=== PATIENT | male | born 1970 | race African-American/Black ===

== ENCOUNTER 2016-05-01 16:34 | Emergency (ER) | payer SELFPAY ==
[2016-05-01 17:20] VITALS: PULSE 67; TEMP 98; BMI 22.8
[2016-05-01 17:40] LABS: AUTOMATED BASOPHIL 0.9 % (0-2); AUTOMATED EOSINOPHIL 2.8 % (0-5); AUTOMATED LYMPH 23.8 % (17-44); AUTOMATED MONOCYTE 8.8 % (3-10); AUTOMATED NEUTROPHIL 63.7 % (45-76); MPV 9.7 fL (7.4-10.4)
[2016-05-01 17:53] LABS: PARTIAL THROMB. TIME 23.8 SEC (22-35)
[2016-05-01 17:56] LABS: BLOOD UREA NITROGEN 14 MG/DL (9-20); CALCIUM 9.4 MG/DL (8.4-10.2); CALCULATED OSMOLALITY 269 MOs/Kg (270-290); CHLORIDE 105 mEq/L (98-107); GLUCOSE 93 MG/DL (70-99); SODIUM LEVEL 139 mEq/L (137-146); TOTAL PROTEIN 7.5 G/DL (6.3-8.2)
--- NOTE | 2016-05-01 20:31 | EDPRACDOC ---
- General Information Chief Complaint: Neuro Symptoms/Deficits Stated Complaint: WEAKNESS AND SYNCOPE Mode Of Arrival: Car Home Medications: Home Medications Lisinopril 10 mg PO DAILY #60 tablet 05/01/16 Allergies/Adverse Reactions: Allergies Allergy/AdvReac Type Severity Reaction Status Date / Time No Known Allergies Allergy Verified 05/01/16 17:21 - History of Present Illness Onset: 1500 HPI: C/o episodes of lightheadedness past few days, and today passed out once. denies cp, sob, fever, N/V/D, cough, sore throat, change in urine or BM. Med hx = HTN, and has not been taking BP meds x 4 months. Hx of seizures with last seizure 25 yrs ago. Symptoms Started: Reports: Suddenly, At Rest Symptoms Description: Improved Symptoms: Reports: Faintness, Syncope Symptom Severity: Reports: Does not affect activitiy Associated signs and symptoms:: Reports: None ED Past Medical History - History Reviewed Yes Nurses notes reviewed and agree except as marked - Patient Medical History Neurological History: Reports: Seizures (12 years ago) Cardiac History: Reports: Hypertension GI/ History: Reports: Kidney Stones Surgical History: Reports: Other (KNEE) - Family Medical History Reports: Hypertension (PARENTS), Diabetes (PARENTS), Cardiac Disorders (FATHER) EDM Review of Systems - Review of Systems ROS Negative Except as Marked: Yes All systems reviewed and were negative except as marked Neurological: Other (lightneadedness) - Physical Exam Constitutional: No apparent distress, Alert Oriented to: Time, Person, Place Last recorded Vital Signs: Last Vital Signs Temp 98 F 05/01/16 17:11 Pulse 67 05/01/16 20:16 Resp 18 05/01/16 20:16 BP 169/100 05/01/16 20:16 Pulse Ox 97 05/01/16 20:16 Oxygen Pulse Oxygen Saturation 97 O2 Device Room Air Oxygen Flow Rate Fraction of Inspired Oxygen ( FIO2) - HEENT Head: Normal Eye Exam: negative: Conjunctival Injection, Scleral Icterus Oropharynx: negative: Drooling TMJ: Normal Nose: No Symptoms Reported Neck: Normal - Respiratory/Cardiovascular Respiratory: Normal - CTA Cardiovascular: Bradycardia - GI Tenderness: Non tender - Musculoskeletal Back: Normal Extremities: Normal - Neurologic Memory Impaired: Normal Motor Function: Normal Cranial Nerve: Normal Cerebellar: Normal Mood Description: Normal Thought: Coherent Perception: Normal - Neurologic Orientation: Time, Person, Place Speech: Fluent Affect: Normal Thought: Coherent Perception: Normal - Coordination Finger to Nose Test: Normal Performance Alternate Nose to Finger Test: Normal Performance Heel on [place] Test: Normal Performance - Gait Standing Equilibrium Reactions: Within Normal Limits Left, Within Normal Limit Right Unsupported Stance Ability ([place] Balance): Safely- 2 minutes Unsupported Stance- Eyes Closed ([place] Balance): Safely, 10 seconds Unsupported Stance- Feet Together: Independent, 1 minute - Results 05/01/16 17:25 05/01/16: WBC 9.0 xk/uL (3.8-10.8) 05/01/16: RBC 4.30 xM/uL (4.70-6.10) L 05/01/16: Hgb 12.8 g/dL (14.0-18.0) L 05/01/16: Hct 38.0 % (42-52) L 05/01/16: MCV 89 fL (80-94) 05/01/16: MCH 29.7 pg (27-32) 05/01/16: MCHC 33.5 g/dl (33-36) 05/01/16: RDW 13.9 % (11.5-14.5) 05/01/16: Plt Count 237 xk/uL (130-400) 05/01/16: MPV 9.7 fL (7.4-10.4) 05/01/16: Neut % (Auto) 63.7 % (45-76) 05/01/16: Lymph % (Auto) 23.8 % (17-44) 05/01/16: [place] % (Auto) 8.8 % (3-10) 05/01/16: Eos % (Auto) 2.8 % (0-5) 05/01/16: Baso % (Auto) 0.9 % (0-2) 05/01/16: Absolute Neuts (auto) 5.67 xk/uL (1.7-8.2) 05/01/16: Absolute Lymphs (auto) 2.07 xk/uL (0.65-4.75) 01/13/17 17:25 PT 10.3 SEC (9.2-11.2) 05/01/16 17:25 INR 1.0 05/01/16 17:25 APTT 23.8 SEC (22-35) 05/01/16 17:25 Sodium 139 mEq/L (137-146) 05/01/16 17:25 Potassium 3.9 mEq/L (3.5-5.1) 05/01/16 17:25 Chloride 105 mEq/L (98-107) 05/01/16 17:25 Carbon Dioxide 25 mMOL/L (22-33) 05/01/16 17:25 Anion Gap 13 mEq/L (8-16) 05/01/16 17:25 BUN 14 MG/DL (9-20) 05/01/16 17:25 Creatinine 1.20 MG/DL (0.66-1.25) 05/01/16 17:25 Estimated GFR (MDRD) > 60 mL/min (>=60) 05/01/16 17:25 Glucose 93 MG/DL (70-99) 05/01/16 17:25 Calculated Osmolality 269 MOs/Kg (270-290) L 05/01/16 17:25 Calcium 9.4 MG/DL (8.4-10.2) 05/01/16 17:25 Total Bilirubin 0.4 MG/DL (0.2-1.3) 05/01/16 17:25 AST 28 IU/L (17-59) 05/01/16 17:25 ALT 33 IU/L (21-72) 05/01/16 17:25 Alkaline Phosphatase 112 IU/L (38-126) 05/01/16 17:25 Troponin I < 0.01 ng/mL (<.04) 05/01/16 17:25 Oos-R-Hpbwrjqgacd Pept 42 pg/mL (0-450) 05/01/16 17:25 Total Protein 7.5 G/DL (6.3-8.2) 05/01/16 17:25 Albumin 4.1 G/DL (3.5-5.0) 05/01/16 17:25 Lab Results 05/01/16 05/01/16 05/01/16 17:25 17:25 17:25 WBC 9.0 RBC 4.30 L Hgb 12.8 L Hct 38.0 L MCV 89 MCH 29.7 MCHC 33.5 RDW 13.9 Plt Count 237 MPV 9.7 Neut % (Auto) 63.7 Lymph % (Auto) 23.8 [place] % (Auto) 8.8 Eos % (Auto) 2.8 Baso % (Auto) 0.9 Absolute Neuts (auto) 5.67 Absolute Lymphs (auto) 2.07 PT 10.3 INR 1.0 APTT 23.8 Sodium 139 Potassium 3.9 Chloride 105 Carbon Dioxide 25 Anion Gap 13 BUN 14 Creatinine 1.20 Estimated GFR (MDRD) > 60 Glucose 93 Calculated Osmolality 269 L Calcium 9.4 Total Bilirubin 0.4 AST 28 ALT 33 Alkaline Phosphatase 112 Troponin I < 0.01 Spe-D-Zveswlcjuck Pept 42 Total Protein 7.5 Albumin 4.1 - EKG EKG #1 EKG Time: 17:29 -: Yes EKG interpreted by me Rate: bpm: 57 Rhythm: SB ST: Normal - Diagnostic Imaging Chest Image interpreted by: Radiologist EXAM: PORTABLE CHEST 1 VIEW COMPARISON: None. FINDINGS: Normal mediastinum and cardiac silhouette. Normal pulmonary vasculature. No evidence of effusion, infiltrate, or pneumothorax. No acute bony abnormality. IMPRESSION: Normal chest radiograph Electronically Signed By: Jaquan Cantu M.D. On: 05/01/2016 20:44 Decision Time to Discharge: 21:02 - Departure Disposition: Home Condition: Stable Final Diagnosis: Light-headedness Hypertension Qualifiers: Hypertension type: essential hypertension Qualified Code(s): I10 - Essential ( primary) hypertension Syncope Qualifiers: Syncope type: unspecified Qualified Code(s): R55 - Syncope and collapse Instructions: Chronic Hypertension (ED), Lightheadedness (ED), Syncope (ED) Education/Counseling Given To: Patient Education/Counseling Given Regarding: Diagnosis, Treatment, Prognosis, Follow Up Referrals: Nancy Resendez NP [Primary Care Provider] - One Week Prescriptions: Lisinopril 10 mg PO DAILY #60 tablet Additional Instructions: Follow up with primary care for elevated blood pressure and episodes of lightheadedness/syncope. Return to ED for any new or worsening symptoms.
[2016-05-01 20:41] VITALS: BP 184/105
--- NOTE | 2016-05-01 20:46 | DIRPT ---
CLINICAL DATA: Syncope hypertension EXAM: PORTABLE CHEST 1 VIEW COMPARISON: None. FINDINGS: Normal mediastinum and cardiac silhouette. Normal pulmonary vasculature. No evidence of effusion, infiltrate, or pneumothorax. No acute bony abnormality. IMPRESSION: Normal chest radiograph Electronically Signed By: Jaquan Cantu M.D. On: 05/01/2016 20:44
[2016-05-01] MEDS ORDERED: LISINOPRIL 10 MG TAB PO ONE (21:10)
== END 2016-05-01 22:17 | disposition home or self-care (01) ==
LOC: ED 16:34
DX: R42 Dizziness and giddiness (principal); I10 Essential (primary) hypertension; R55 Syncope and collapse
CPT/HCPCS: 36415; 71010; 80053; 83880; 84484; 85025; 85610; 85730; 93005; 99284; J3490